=== PATIENT | male | born 1950 | race Caucasian/White ===

== ENCOUNTER 2019-06-24 13:54 | Emergency (ER) | payer MEDICARE, MEDICAID ==
--- NOTE | 2019-06-24 14:07 | ED.PDOC ---
History of Present Illness - General Chief Complaint: Abdominal Pain Time Seen by Provider: 06/24/19 14:00 Information Source: patient Exam Limitations: no limitations - History of Present Illness Initial Comments: this is a 68-year-old gentleman who presents to the ER secondary to complaints of abdominal pain off and on for the past 3 days. He states that he did eat breakfast this morning. He only had a bite of lunch. He states that he has a poor appetite this afternoon. He denies any pain currently. He states that his abdomen is always a little distended. 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 He reports it in May he was admitted to [facility] in [place]. He admits to vomiting once several days ago and none since. He also admits to having diarrhea for the past 3 days off and on. He denies having any fever or chills. 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 Respiratory: States: no symptoms reported Cardiology: States: no symptoms reported Gastrointestinal/Abdominal: States: see HPI, abdominal pain, diarrhea, nausea, vomiting, other - denies current nausea and denies current pain Genitourinary: States: no symptoms reported, other - has Urena in place that he states was placed there last monthwhile he was hospitalized Musculoskeletal: States: no symptoms reported Skin: States: no symptoms reported Neurological: States: no symptoms reported Hematologic/Lymphatic: States: no symptoms reported All other Systems: Reviewed and Negative Family Medical History - Family History Father Family History: Unknown Living Status: Unknown Physical Exam - Physical Exam General Appearance: Alert, No apparent distress Eyes, Ears, Nose, Throat Exam: other - patient is blind Neck: non-tender, full range of motion, supple Respiratory: chest non-tender, lungs clear, normal breath sounds, no respiratory distress, no accessory muscle use, respiratory distress, rales - mild Rales in the right base Cardiovascular/Chest: normal peripheral pulses, regular rate, rhythm, no edema, no gallop, no JVD Peripheral Pulses: No deficit Gastrointestinal/Abdominal: non tender, distended, other - no guarding or rebound is noted. Patient is mildly tender markedly distention is noted with high-pitched Back Exam: normal inspection, no CVA tenderness Extremity: other - thin no evidence of edema muscle atrophy noted in all 4 extremities Neurologic: alert, normal mood/affect, oriented x 3 Skin Exam: normal color, warm/dry - ecchymosis from previous IVs Lymphatic: no adenopathy Progress - Progress Progress: 06/24/19 15:44 Pt is noted to be markedly distented. He has no noted point of transition on ct evaluation. We will drop an ngt to give him some relief from his distension. He is noted to have cr of 4.4. He was discharged in the past month from [facility]. Will plan on calling them for possible transfer since we do not have nephrology here at this facility. 06/24/19 16:53 patient states that he is not currently having any increased pain. RNs dropping an NG tube presently. 06/24/19 17:[address] Medrano with [facility]. He agrees to accept patient for transfer. - Results/Orders Results/Orders: 06/24/19 14:17 IV:Start .ONCE 06/24/19 14:19 Sodium Chloride 0.9% 1000ML [Ns 1000 ml] 1,000 ml IVS .QD 06/24/19 15:10 BLOOD CULTURE Stat 06/24/19 15:24 Urine Culture Stat 06/24/19 15:43 NG [Tube(s):Nasogastric,Insertion] PRN Laboratory Results - last 24 hr 06/24/19 06/24/19 06/24/19 14:38 14:38 14:38 WBC 6.1 RBC 3.75 L Hgb 11.5 L Hct 34.6 L MCV 92.4 MCH 30.6 MCHC 33.1 RDW 14.7 H Plt Count 227 MPV 8.4 Absolute Neuts (auto) 3.90 Absolute Lymphs (auto) 1.10 Absolute Monos (auto) 0.70 Absolute Eos (auto) 0.40 Absolute Basos (auto) 0.10 Neutrophils % 64.4 Lymphocytes % 17.3 L Monocytes % 11.2 H Eosinophils % 6.1 H Basophils % 1.0 Sodium 140 Potassium 5.0 Chloride 110 Carbon Dioxide 17 L Anion Gap 18.0 BUN 69 H Creatinine 4.44 H BUN/Creatinine Ratio 15.5 Random Glucose 100 Serum Osmolality 299.6 H Lactic Acid 1.6 Calcium 8.4 Total Bilirubin 0.5 AST 15 ALT 13 Alkaline Phosphatase 144 H Serum Total Protein 7.8 Albumin 3.4 Globulin 4.4 H Albumin/Globulin Ratio 0.8 L Urine Color Urine Appearance Urine pH Ur Specific [place] Urine Protein Urine Glucose (UA) Urine Ketones Urine Blood Urine Nitrite Urine Bilirubin Urine Urobilinogen Ur Leukocyte Esterase Urine RBC Urine WBC Ur Epithelial Cells Urine Bacteria 06/24/19 15:24 WBC RBC Hgb Hct MCV MCH MCHC RDW Plt Count MPV Absolute Neuts (auto) Absolute Lymphs (auto) Absolute Monos (auto) Absolute Eos (auto) Absolute Basos (auto) Neutrophils % Lymphocytes % Monocytes % Eosinophils % Basophils % Sodium Potassium Chloride Carbon Dioxide Anion Gap BUN Creatinine BUN/Creatinine Ratio Random Glucose Serum Osmolality Lactic Acid Calcium Total Bilirubin AST ALT Alkaline Phosphatase Serum Total Protein Albumin Globulin Albumin/Globulin Ratio Urine Color Yellow Urine Appearance Clear Urine pH 5.5 Ur Specific [place] 1.010 Urine Protein 100 H Urine Glucose (UA) Negative Urine Ketones Negative Urine Blood Trace-intact H Urine Nitrite Negative Urine Bilirubin Negative Urine Urobilinogen 0.2 Ur Leukocyte Esterase Moderate H Urine RBC 1-3 Urine WBC 10-20 H Ur Epithelial Cells 0-1 Urine Bacteria Rare IMPRESSION: 1. Diffuse colonic dilatation without a focal transition. Findings may reflect colonic pseudoobstruction, developing obstruction or ileus. No evidence of bowel compromise. 2. Marked bladder wall thickening. Recommend correlation with urinalysis. Electronically signed by: Anurag Harley MD 06/24/2019 3:04 PM FURNITURE TECHNICIAN Departure - Departure Clinical Impression: CKD (chronic kidney disease) stage 3, GFR 30-59 ml/min Urinary tract infection Qualifiers: Urinary tract infection type: catheter-associated UTI Indwelling urinary catheter type: indwelling urethral catheter Encounter type: initial encounter Qualified Code(s): T83.511A - Infection and inflammatory reaction due to indwelling urethral catheter, initial encounter Abdominal pain Qualifiers: Abdominal location: generalized Qualified Code(s): R10.84 - Generalized abdominal pain Disposition: Discharge to Home or Self Care Departure Forms: ED Discharge - Pt. Copy, Patient Portal Self Enrollment Instructions: DI for Abdominal Pain-Adult Referrals: TIMA CARO [Primary Care Provider] - 1-2 Weeks Home Medications: Ambulatory Orders Calcium Acetate (Phosphate Bin [Calcium Acetate] 3 each PO .TIDAC 06/24/19 Cholecalciferol [Vitamin D3] 1,000 unit PO DAILY 06/24/19 Donepezil Hydrochloride [Donepezil HCl] 10 mg PO DAILY 06/24/19 Hydroxyzine HCl 25 mg PO Q6H PRN 06/24/19 Lactulose 30 ml PO TID 06/24/19 Pantoprazole Sodium 40 mg PO DAILY 06/24/19 Probiotic Product [Acidophilus] 1 cap PO BID 06/24/19 Simethicone [Mylanta Gas] 160 mg PO Q6H PRN 06/24/19 Sodium Bicarbonate (Antacid) [Sodium Bicarbonate] 650 mg PO BID 06/24/19 Tramadol HCl [Ultram] 50 mg PO Q6H PRN 06/24/19 Triamcinolone 0.1% Oint [Kenalog 0.1% Ointment] 1 applic TOP TID 06/24/19 Transfer to Outside Facility - Transfer Information Decision to Transfer Date: 06/24/19 Decision to Transfer Time: 17:27 Reason for Transfer: specialized care not available Accepting Provider:: Dr. Medrano Accepting Facility: [facility] - Pt will be transferred via EMS to [facility].
[2019-06-24] MEDS ORDERED: SODIUM CHLORIDE 0.9% 1000ML 1,000 ML IVS PRN (14:19)
--- NOTE | 2019-06-24 15:05 | CT ---
EXAM DESCRIPTION: Abdoment/Pelvis w/o Contrast CLINICAL HISTORY: 68 years Male, abdominal pain and distension TECHNIQUE: This exam was performed according to our departmental dose-optimization program, which includes automated exposure control, adjustment of the mA and/or kV according to patient size and/or use of iterative reconstruction technique. COMPARISON: None at time of initial interpretation. FINDINGS: Evaluation limited by lack of intravenous contrast. Bibasilar atelectasis. The contours of the liver, gallbladder, spleen, pancreas and adrenal glands are unremarkable. Bilateral renal vascular, cortical and calyceal calcifications. Bilateral renal atrophy. The largest right renal calcification measures 1.9 cm. The largest left renal calcification measures 0.9 cm. Bilateral small low-attenuation renal lesions which are incompletely characterized. The bladder is decompressed with a Urena catheter. Marked bladder wall thickening. The colon is diffusely dilated, and predominantly air-filled. No focal transition. No pneumatosis. No portal venous gas. No free air. The stomach is also distended. Postsurgical changes involving the proximal small bowel suspected. No adenopathy. No focal fluid collection. No free air. Normal caliber abdominal aorta. Diffusely sclerotic bones which likely reflect renal osteodystrophy. No acute fracture or focal osseous lesion identified. IMPRESSION: 1. Diffuse colonic dilatation without a focal transition. Findings may reflect colonic pseudoobstruction, developing obstruction or ileus. No evidence of bowel compromise. 2. Marked bladder wall thickening. Recommend correlation with urinalysis. Electronically signed by: Anurag Harley MD 06/24/2019 3:04 PM CRABBER
[2019-06-24] MEDS ORDERED: levoFLOXacin 500MG IV 500 MG in PREMIX BAG 1 BAG IVPB ONE (15:49)
[2019-06-24] MEDS ORDERED: levoFLOXacin 500MG IV 100 ML IVPB ONE (15:53)
[2019-06-24] MEDS ORDERED: LIDOCAINE 2 % GEL 5 ML TUBE TOP ONE (16:38)
[2019-06-24] MEDS ORDERED: ONDANSETRON INJ 4 MG/2 ML VIAL IV ONE (17:59)
[2019-06-24] MEDS ORDERED: ONDANSETRON INJ 4 MG/2 ML VIAL ONE (17:59)
[2019-06-24] MEDS ORDERED: SODIUM CHLORIDE 0.9% 1000ML 1,000 ML IVS ONE (18:10)
[2019-06-24 18:25] VITALS: BP 111/64; TEMP 96.8; O2SAT 96
== END 2019-06-24 18:00 | disposition home or self-care (01) ==
LOC: ER 13:54
DX: T83.511A Infection and inflammatory reaction due to indwelling urethral catheter, initial encounter (principal); R10.84 Generalized abdominal pain; N18.3 Chronic kidney disease, stage 3 (moderate); R19.7 Diarrhea, unspecified; R11.2 Nausea with vomiting, unspecified; H54.7 Unspecified visual loss
CPT/HCPCS: 74176; 80053; 81001; 83605; 85025; 87040; 87086; J1956; J2405; J7030